=== PATIENT | male | born 1955 | race Caucasian/White ===

== ENCOUNTER 2016-07-03 12:21 | Emergency (ER) | payer MEDICAID ==
--- NOTE | 2016-07-03 12:29 | EDM.PDOC ---
ED HISTORY OF PRESENT ILLNESS - General Chief Complaint: Cardiovascular Problem Stated Complaint: FROM CLINIC Time Seen by Provider: 07/03/16 13:05 Source of Information: Reports: Patient, Old records (clinic records), Provider (Dr. Salgado), RN, RN notes reviewed History Limitations: Reports: No limitations - History of Present Illness INITIAL COMMENTS - FREE TEXT/NARRATIVE: Sent from clinic by Dr. Salgado with Hx of cough and SOB x1 week and findings in clinic of new onset A-Fib with RVR. Pt reports onset of shortness of breath approx. 1 month ago with slowly increasing edema, cough, and worsening shortness of breath. Over the past 1-2 weeks pt reports onset rapid and irreg. heart rate, worsening edema, and orthopnea. He denies chest pain or pressure, fever, chills, lightheadedness, or syncope. He denies any past medical history, but states that he hasn't seen a doctor for many years. Timing/Duration: Reports: Constant, Getting worse, Gradual onset (approx. 1 month ago) Severity: severe Location, General: Reports: chest Quality: Reports: Other (denies pain) Improves with: Reports: None Worsens with: Reports: Other (supine position) Associated Symptoms (General): Reports: cough - Related Data Allergies/ADRs: Allergies Allergy/AdvReac Type Severity Reaction Status Date / Time No Known Allergies Allergy Verified 07/03/16 13:13 Home Meds: Home Meds Multivitamin [Daily Phyllis] 1 tab PO DAILY 07/03/16 [History] Past Medical History - Past Health History Medical/Surgical History: Denies Medical/Surgical History Endocrine/Metabolic History: Reports: Obesity/BMI 30+ Social & Family History - Family History Cardiac: Reports: CAD, Heart failure (mother), Hypertension - Tobacco Use Smoking Status *Q: Never Smoker Second Hand Smoke Exposure: No - Alcohol Use Alcohol Use History: Yes Days Per Week of Alcohol Use: 7 Number of Drinks Per Day: 2 (two beers/day) Total Drinks Per Week: 14 Alcohol Use in Last Twelve Months: Yes Alcohol Use Frequency: Daily - Recreational Drug Use Recreational Drug Use: No Drug Use in Last 12 Months: No - Living Situation & Occupation Living situation: Reports: , with spouse Occupation: employed ED ROS GENERAL - Review of Systems Review Of Systems: ROS reveals no pertinent complaints other than HPI. ED EXAM, GENERAL - Physical Exam Exam: See Below Exam Limited By: No limitations General Appearance: alert, WD/WN, no apparent distress, obese Eye Exam: bilateral eye: normal inspection Ears: normal external exam, hearing grossly normal Nose: normal inspection Throat/Mouth: Normal inspection, Normal voice, No airway compromise Head: atraumatic, normocephalic Neck: normal inspection, supple, non-tender, full range of motion Respiratory/Chest: no respiratory distress, no accessory muscle use, decreased breath sounds, rales (bibasilar). No: rhonchi, wheezing Cardiovascular: no gallop, no JVD, no murmur, no rub, tachycardia, irregularly irregular Peripheral Pulses: 2+: dorsalis pedis (L), dorsalis pedis (R), 3+: radial (L), radial (R) GI/Abdominal: normal bowel sounds, soft, non tender, no distention, no abnormal bruit, other (obese abdomen). No: guarding, rigid, rebound (Male) Exam: Deferred Rectal (Males) Exam: Deferred Back Exam: normal inspection, full range of motion. No: CVA tenderness (L), CVA tenderness (R) Extremities: normal range of motion, non-tender, normal capillary refill, pedal edema (+3 pitting edema to distal thighs B/L). No: Claudy's Sign Neurological: alert, oriented, CN II-XII intact, normal cognition, normal gait, no motor/sensory deficits Psychiatric: normal affect, normal mood Skin Exam: Warm, Dry, Intact, Erythema (mild erythema to lower abdomen) EKG INTERPRETATION EKG Date: 07/03/16 Time: 12:26 Rhythm: other (A-Fib) Rate (beats/min): 112 (Rate variable up to 152) [place]: LAD-left axis deviation (borderline) P-wave: absent QRS: other (PVCs and PACs) ST-T: normal QT: prolonged (borderline) Comparison: NA - no prior EKG Course - Vital Signs Last Recorded V/S: Last Vital Signs Temp 36.7 C 07/03/16 13:05 Pulse 154 H 07/03/16 13:05 Resp 22 H 07/03/16 13:05 BP 145/106 H 07/03/16 13:05 Pulse Ox 98 07/03/16 13:05 - Orders/Labs/Meds Orders: Active Orders 24 hr Category Date Time Status EKG 12 Lead [EKG Documentation Completion] [RC] STAT Care 07/03/16 12:44 Active Peripheral IV Care [RC] . DIRECTED Care 07/03/16 12:45 Active Chest 1V Frontal [CR] Stat Exams 07/03/16 12:44 Ordered CK W CKMB [CHEM] Stat Lab 07/03/16 12:50 Results TSH ULTRASENSITIVE [CHEM] Stat Lab 07/03/16 12:50 Results UA W/MICROSCOPIC [URIN] Stat Lab 07/03/16 12:45 Uncollected Diltiazem [Cardizem] 100 mg Med 07/03/16 13:00 Active Sodium Chloride 0.9% [Normal Saline] 100 ml IV TITRATE Heparin Sodium/D5W [Heparin 25,000 Units in D5W 500 ML] Med 07/03/16 13:30 Active 25,000 units in 500 ml IV TITRATE Sodium Chloride 0.9% [Saline Flush] Med 07/03/16 12:45 Active 10 ml FLUSH ASDIRECTED PRN Peripheral IV Insertion Adult [OM.PC] Stat Oth 07/03/16 12:44 Ordered RT Supplemental Oxygen Titration [RESPCARE] Stat Oth 07/03/16 12:45 Active Medication Orders Diltiazem HCl 100 mg/ Sodium (Chloride) 100 mls @ 10 mls/hr IV TITRATE KIRSTEN; 10 MG/HR PRN Reason: Protocol Last Titration: 07/03/16 13:12 Dose: 10 mg/hr, 10 mls/hr Admin: 07/03/16 13:02 Dose: 5 mg/hr, 5 mls/hr Heparin Sodium/Dextrose (Heparin 25,000 Units In D5w 500 Ml) 25,000 units in 500 mls @ 34.509 mls/hr IV TITRATE KIRSTEN; 12 UNITS/KG/HR PRN Reason: Protocol Sodium Chloride (Saline Flush) 10 ml FLUSH ASDIRECTED PRN PRN Reason: Keep Vein Open Labs: Laboratory Tests 07/03/16 07/03/16 07/03/16 Range/Units 12:50 12:50 12:50 WBC 10.1 H (5.0-10.0) 10^3/uL RBC 4.60 (4.6-6.2) 10^6/uL Hgb 13.6 L (14.0-18.0) g/dL Hct 41.1 (40.0-54.0) % MCV 89.3 (80-100) fL MCH 29.6 (27.0-34.0) pg MCHC 33.1 (33.0-35.0) g/dL Plt Count 400 (150-450) 10^3/uL Neut % (Auto) 71.2 (42.2-75.2) % Lymph % (Auto) 17.9 L (20.5-50.1) % [place] % (Auto) 9.5 H (2-8) % Eos % (Auto) 1.0 (1.0-3.0) % Baso % (Auto) 0.4 (0.0-1.0) % PT 10.5 (9.0-12.0) SEC INR 1.0 (0.9-1.2) APTT 26.7 (22.0-34.0) SEC Sodium 136 (135-145) mmol/L Potassium 4.2 (3.6-5.0) mmol/L Chloride 101 (101-111) mmol/L Carbon Dioxide 27.0 (21.0-31.0) mmol/L Anion Gap 12.2 BUN 22 H (7-18) mg/dL Creatinine 0.9 (0.6-1.3) mg/dL Est Cr Clr Drug Dosing TNP Estimated GFR (MDRD) > 60 BUN/Creatinine Ratio 24.44 Glucose 105 (74-105) mg/dL Calcium 9.2 (8.4-10.2) mg/dl Magnesium 2.1 (1.8-2.5) mg/dL Total Bilirubin 0.5 (0.2-1.0) mg/dL AST 44 H (10-42) IU/L ALT 58 (10-60) IU/L Alkaline Phosphatase 71 (42-121) IU/L Creatine Kinase (26-174) IU/L Creatine Kinase Index (0-2.4) % CK-MB (CK-2) (0.4-4.7) ng/mL Troponin I 0.20 H* (0.00-0.02) ng/ml B-Natriuretic Peptide 411 H (0-100) pg/ml Total Protein 7.1 (6.7-8.2) g/dl Albumin 3.9 (3.2-5.5) g/dl Globulin 3.2 Albumin/Globulin Ratio 1.22 04/04/17 Range/Units 12:50 WBC (5.0-10.0) 10^3/uL RBC (4.6-6.2) 10^6/uL Hgb (14.0-18.0) g/dL Hct (40.0-54.0) % MCV (80-100) fL MCH (27.0-34.0) pg MCHC (33.0-35.0) g/dL Plt Count (150-450) 10^3/uL Neut % (Auto) (42.2-75.2) % Lymph % (Auto) (20.5-50.1) % [place] % (Auto) (2-8) % Eos % (Auto) (1.0-3.0) % Baso % (Auto) (0.0-1.0) % PT (9.0-12.0) SEC INR (0.9-1.2) APTT (22.0-34.0) SEC Sodium (135-145) mmol/L Potassium (3.6-5.0) mmol/L Chloride (101-111) mmol/L Carbon Dioxide (21.0-31.0) mmol/L Anion Gap BUN (7-18) mg/dL Creatinine (0.6-1.3) mg/dL Est Cr Clr Drug Dosing Estimated GFR (MDRD) BUN/Creatinine Ratio Glucose (74-105) mg/dL Calcium (8.4-10.2) mg/dl Magnesium (1.8-2.5) mg/dL Total Bilirubin (0.2-1.0) mg/dL AST (10-42) IU/L ALT (10-60) IU/L Alkaline Phosphatase (42-121) IU/L Creatine Kinase 151 (26-174) IU/L Creatine Kinase Index 6.0 H (0-2.4) % CK-MB (CK-2) 9.10 H (0.4-4.7) ng/mL Troponin I (0.00-0.02) ng/ml B-Natriuretic Peptide (0-100) pg/ml Total Protein (6.7-8.2) g/dl Albumin (3.2-5.5) g/dl Globulin Albumin/Globulin Ratio Meds: Medications Generic Name Dose Route Start Last Admin Trade Name Freq PRN Reason Stop Dose Admin Diltiazem HCl 100 mg/ Sodium 100 mls @ 10 mls/hr 07/03/16 13:00 07/03/16 13: 12 Chloride IV 10 mg/hr TITRATE KIRSTEN 10 mls/hr Protocol Titration 10 MG/HR Heparin Sodium/Dextrose 25,000 units in 500 mls @ 34.509 mls/hr 07/03/16 13: 30 Heparin 25,000 Units In D5w 500 Ml IV TITRATE KIRSTEN Protocol 12 UNITS/KG/HR Sodium Chloride 10 ml 07/03/16 12:45 Saline Flush FLUSH ASDIRECTED PRN Keep Vein Open Discontinued Medications Generic Name Dose Route Start Last Admin Trade Name Freq PRN Reason Stop Dose Admin Aspirin 324 mg 07/03/16 12:46 07/03/16 13:02 Aspirin PO 07/03/16 12:47 324 mg ONETIME ONE Administration Diltiazem HCl 20 mg 07/03/16 12:45 07/03/16 13:01 Diltiazem IVPUSH 07/03/16 12:46 20 mg ONETIME ONE Administration Furosemide 40 mg 07/03/16 13:47 Lasix IVPUSH 07/03/16 13:48 NOW ONE Heparin Sodium (Porcine) 5,000 units 07/03/16 13:28 Heparin Sodium IVPUSH 07/03/16 13:29 ONETIME ONE - Radiology Interpretation Free Text/Narrative:: CXR: CHF, see Rad. report. CT Results Date: 07/03/16 - Re-Assessments/Exams Free Text/Narrative Re-Assessment/Exam: 07/03/16 13:30 Altru GF on divert, Pt accepted by Dr. Bravo at [facility] in [place]. Departure - Departure Time of Disposition: 13:45 Disposition: DC/Tfer to Acute Hospital 02 Reason for Transfer *Q: Primary PCI Indicated Condition: critical Clinical Impression: New onset atrial fibrillation, Atrial fibrillation with rapid ventricular response, Non-STEMI (non-ST elevated myocardial infarction), Uncontrolled hypertension Acute CHF (congestive heart failure) Qualifiers: Congestive heart failure type: unspecified congestive heart failure type Qualified Code(s): I50.9 - Heart failure, unspecified Forms: ED Department Discharge, Interfacility Transfer EMTALA - My Orders Last 24 Hours: My Active Orders 07/03/16 12:44 EKG 12 Lead [EKG Documentation Completion] [RC] STAT Chest 1V Frontal [CR] Stat Peripheral IV Insertion Adult [OM.PC] Stat 07/03/16 12:45 Peripheral IV Care [RC] . DIRECTED UA W/MICROSCOPIC [URIN] Stat Sodium Chloride 0.9% [Saline Flush] 10 ml FLUSH ASDIRECTED PRN RT Supplemental Oxygen Titration [RESPCARE] Stat 07/03/16 12:50 CK W CKMB [CHEM] Stat TSH ULTRASENSITIVE [CHEM] Stat 07/03/16 13:00 Diltiazem [Cardizem] 100 mg Sodium Chloride 0.9% [Normal Saline] 100 ml IV TITRATE 07/03/16 13:30 Heparin Sodium/D5W [Heparin 25,000 Units in D5W 500 ML] 25,000 units in 500 ml IV TITRATE - Assessment/Plan Last 24 Hours: My Active Orders 07/03/16 12:44 EKG 12 Lead [EKG Documentation Completion] [RC] STAT Chest 1V Frontal [CR] Stat Peripheral IV Insertion Adult [OM.PC] Stat 07/03/16 12:45 Peripheral IV Care [RC] . DIRECTED UA W/MICROSCOPIC [URIN] Stat Sodium Chloride 0.9% [Saline Flush] 10 ml FLUSH ASDIRECTED PRN RT Supplemental Oxygen Titration [RESPCARE] Stat 07/03/16 12:50 CK W CKMB [CHEM] Stat TSH ULTRASENSITIVE [CHEM] Stat 07/03/16 13:00 Diltiazem [Cardizem] 100 mg Sodium Chloride 0.9% [Normal Saline] 100 ml IV TITRATE 07/03/16 13:30 Heparin Sodium/D5W [Heparin 25,000 Units in D5W 500 ML] 25,000 units in 500 ml IV TITRATE
[2016-07-03] MEDS ORDERED: Sodium Chloride 0.9% 10 ML Syringe FLUSH PRN (12:45)
[2016-07-03] MEDS ORDERED: Diltiazem 25 MG/5 ML SDV IVPUSH ONE (12:45)
[2016-07-03] MEDS ORDERED: Aspirin 81 MG Tab.Chew PO ONE (12:46)
[2016-07-03] MEDS ORDERED: Diltiazem 100 MG in Sodium Chloride 0.9% 100 ML IV SCH (13:00)
[2016-07-03 13:11] VITALS: BP 145/106
[2016-07-03 13:19] LABS: CHLORIDE,CL 101 mmol/L (101-111); SODIUM,NA 136 mmol/L (135-145)
[2016-07-03] MEDS ORDERED: Heparin Sodium 5,000 Units/ML Vial IVPUSH ONE (13:28)
[2016-07-03] MEDS ORDERED: Heparin Sodium/D5W 25,000 UNITS/500 ML BAG IV SCH (13:30)
[2016-07-03] MEDS ORDERED: Furosemide 40 MG/4 ML VIAL IVPUSH ONE (13:47)
--- NOTE | 2016-07-03 14:31 | CR ---
Clinical history: 60-year-old male dyspnea and peripheral edema. Interpretation: Abnormal. AP portable chest film confirms large heart and generalized mild venous congestion/cephalization. No alveolar edema or dependent pleural effusion. No lung mass, hilar lymphadenopathy or focal lobar infiltrate/atelectasis. No pneumothorax. CONCLUSION: Mild cardiomegaly and venous congestion. Clinical?
--- NOTE | 2016-07-06 12:04 | EKG ---
07/03/2016 - JESUS SIU - TIME: 1226 hours. I reviewed the EKG and agree with the machine's reading. [facility] /[id number]
== END 2016-07-03 14:46 ==
LOC: DL.ED 12:21
DX: I21.4 Non-ST elevation (NSTEMI) myocardial infarction (principal); I11.0 Hypertensive heart disease with heart failure; I50.9 Heart failure, unspecified; I48.91 Unspecified atrial fibrillation; E66.9 Obesity, unspecified
CPT/HCPCS: 36415; 71010; 80053; 82550; 82553; 83735; 83880; 84443; 84484; 85025; 85610; 85730; 93005; 96365; 96366; 96368; 96375; 96376; 99285; A9270; J1644; J1940; J7050; J3490

== ENCOUNTER 2022-05-31 07:19 | Day surgery (SDC) | payer MEDICAID ==
[~2022-05-31 07:19] MED LIST: Dextrose 5%-0.45% NaCl 1,000 ML IV SCH; Midazolam 1 MG/ML 2 ML SDV ONE; Sodium Chloride 0.9% 10 ML Syringe FLUSH PRN; fentaNYL 100 MCG/2 ML SDV ONE
[2022-05-31] MEDS ORDERED: Midazolam 1 MG/ML 2 ML SDV IV ONE ×3 (07:20→08:35)
[2022-05-31] MEDS ORDERED: fentaNYL 100 MCG/2 ML SDV IV ONE ×3 (07:20→08:33)
[2022-05-31] MEDS ORDERED: Sodium Chloride 0.9% 10 ML Syringe FLUSH PRN (07:41)
[2022-05-31] MEDS ORDERED: Dextrose 5%-0.45% NaCl 1,000 ML IV SCH (07:45)
[2022-05-31 08:53] VITALS: BP 159/87; PULSE 85
[2022-05-31] MEDS ORDERED: Sodium Chloride 0.9% 10 ML Syringe FLUSH SCH (09:00)
== END 2022-05-31 10:00 | disposition home or self-care (01) ==
LOC: DL.ENDO 07:19
PROVIDERS: ATTEND Internal Medicine Gastroenterology
DX: K31.89 Other diseases of stomach and duodenum (principal); K25.9 Gastric ulcer, unspecified as acute or chronic, without hemorrhage or perforation; I48.91 Unspecified atrial fibrillation; I25.10 Atherosclerotic heart disease of native coronary artery without angina pectoris; I50.9 Heart failure, unspecified; E66.09 Other obesity due to excess calories; Z95.1 Presence of aortocoronary bypass graft; Z68.38 Body mass index [BMI] 38.0-38.9, adult
CPT/HCPCS: 87077; J2250; J3010; J7042

== ENCOUNTER 2022-06-07 06:01 | Day surgery (SDC) | payer MEDICAID ==
[2022-06-07] MEDS ORDERED: fentaNYL 100 MCG/2 ML SDV IV ONE ×2 (06:53→06:54)
[2022-06-07] MEDS ORDERED: Midazolam 1 MG/ML 2 ML SDV IV ONE ×4 (06:54→07:05)
[2022-06-07] MEDS ORDERED: Sodium Chloride 0.9% 10 ML Syringe FLUSH SCH (09:00)
[2022-06-07 11:05] VITALS: BP 125/80; PULSE 79
== END 2022-06-07 08:25 | disposition home or self-care (01) ==
LOC: DL.ENDO 06:01
PROVIDERS: ATTEND Internal Medicine Gastroenterology
DX: Z12.11 Encounter for screening for malignant neoplasm of colon (principal); K62.1 Rectal polyp; E66.09 Other obesity due to excess calories; I48.91 Unspecified atrial fibrillation; I25.10 Atherosclerotic heart disease of native coronary artery without angina pectoris; R73.9 Hyperglycemia, unspecified; I50.9 Heart failure, unspecified; Z95.1 Presence of aortocoronary bypass graft; Z68.38 Body mass index [BMI] 38.0-38.9, adult; Z79.899 Other long term (current) drug therapy
CPT/HCPCS: J2250; J3010; J7042